=== PATIENT | female | born 1955 | race African-American/Black ===

== ENCOUNTER → 2023-08-01 11:51 | Outpatient (REF) | payer OTHER, SELFPAY | LOC: HWRAD 11:51 | PROVIDERS: ATTENDING PHYSICIAN Nurse Practitioner Adult Health | DX: Z78.0 Asymptomatic menopausal state (principal) | CPT/HCPCS: 77080 ==

== ENCOUNTER → 2024-01-16 12:12 | Outpatient (REF) | payer OTHER, SELFPAY | LOC: HWRAD 12:12 | PROVIDERS: ATTENDING PHYSICIAN Nurse Practitioner Adult Health | DX: M25.562 Pain in left knee (principal) | CPT/HCPCS: 73564 ==

== ENCOUNTER → 2024-01-19 06:15 | Day surgery (SDC) | payer OTHER, SELFPAY | LOC: GI 06:15 | PROVIDERS: ATTENDING PHYSICIAN Internal Medicine | DX: Z12.11 Encounter for screening for malignant neoplasm of colon (principal); D12.3 Benign neoplasm of transverse colon; K31.89 Other diseases of stomach and duodenum; R12 Heartburn | CPT/HCPCS: 45385; 43239; 88305; 88342 ==

== ENCOUNTER → 2024-04-15 13:49 | Outpatient (REF) | payer OTHER, SELFPAY | LOC: WDC 13:49 | PROVIDERS: ATTENDING PHYSICIAN Nurse Practitioner Adult Health | DX: Z12.31 Encounter for screening mammogram for malignant neoplasm of breast (principal) | CPT/HCPCS: 77063; 77067 ==

== ENCOUNTER 2024-05-25 10:38 | Emergency (ER) | payer OTHER, SELFPAY ==
[2024-05-25 11:13] VITALS: BP 170/71
[2024-05-25 11:51] LABS: % Basophils 0.3 % (0-2); % Eosinophils 1.8 % (0-6); % Immature Granulocytes 0.3 % (0-0.5); % Lymphocytes 31.9 % (20.5-51.1); % Monocytes 6.9 % (1.7-9.3); % Neutrophils 58.8 % (42.2-75.2); Absolute Eosinophils 0.1 10^3/uL (0-0.7); Absolute Lymphocytes 2.4 10^3/uL (1.2-3.4); Absolute Monocytes 0.5 10^3/uL (0.1-0.6); Absolute Neutrophils 4.5 10^3/uL (1.4-6.5); Hematocrit 35.9 % (37.0-47.0); Hemoglobin 11.4 g/dL (12.0-16.0); Mean Corp Hgb Conc. 31.8 g/dL (33.0-37.0); Mean Corpuscular Hgb 32.2 pg (27.0-31.0); Mean Corpuscular Volume 101.4 fL (81.0-99.0); Mean Platelet Volume 9.5 fL (7.4-10.4); Nucleated Red Blood Cells % 0 %; Platelet Count 186 10^3/uL (130-400); Red Blood Cell Count 3.54 10^6/uL (4.20-5.40); Red Cell Dist. Width 13.1 % (11.5-14.5); White Blood Cell Count 7.6 10^3/uL (4.8-10.8)
[2024-05-25 11:59] LABS: ALT (SGPT) 15 U/L (0-35); AST (SGOT) 22 U/L (14-36); Alkaline Phosphatase 69 U/L (38-126); Blood Urea Nitrogen 15 mg/dl (7-17); Calcium 9.3 mg/dl (8.4-10.2); Carbon Dioxide 24 mmol/L (22-30); Chloride 108 mmol/L (98-107); Glucose 99 mg/dl (70-99); Potassium 3.8 mmol/L (3.5-5.1); Sodium 141 mmol/L (135-145); Total Bilirubin 0.8 mg/dl (0.2-1.3); Total Protein 6.6 g/dl (6.3-8.2); eGFR > 60.00
[2024-05-25 12:08] LABS: NT-proBNP 138 pg/ml; Troponin I < 0.012 ng/ml
[2024-05-25 14:06] VITALS: BP 169/71
[2024-05-25 15:51] VITALS: BP 154/55
[2024-05-25 15:52] VITALS: BP 154/55
[2024-05-25 15:54] VITALS: BMI 41.3
[2024-05-25 16:00] VITALS: BP 153/65
--- NOTE | 2024-05-25 17:27 | ED.GENMED ---
History of Present Illness
<Ascencion Olivier MD - Last Filed: 05/25/24 17:31>
General
Chief Complaint: Breathing Problem
Source: patient
Exam Limitations: none
Time Seen by Provider: 05/25/24 15:04
History of Present Illness
History of Present Illness:
Patient presents with cough. Some yellow sputum. Trace of blood. Positive COVID about 3 weeks ago. Some mild ankle swelling bilaterally. Seen by the primary physician and was worried about pulmonary emboli/DVT and sent for further evaluation.
Past History
<Ascencion Olivier MD - Last Filed: 05/25/24 17:31>
Past History
ED Past Medical History: Asthma and Other
ED Past Surgical History: Gynecological
Social History
Tobacco: Non-smoker
Drug: None
Personal:
Living: with family
Employment: Employed
Review of Systems
<Ascencion Olivier MD - Last Filed: 05/25/24 17:31>
Review of Systems
All Other Systems: Not applicable
Constitutional: Denies fever
Respiratory: Reports cough
Cardiac: Denies palpitations or syncope
ABD/GI: Reports no symptoms
Phy Exam
<Ascencion Olivier MD - Last Filed: 05/25/24 17:31>
Physical Exam
Physical Exam:
GENERAL: Alert and oriented in no apparent distress
EYE: Orbits normal.
NECK: Supple
ENT: Speech normal. No drooling or stridor
CARDIAC: Regular rate and rhythm without any obvious murmurs.
LUNGS: Clear breath sounds,normal
ABDOMEN: Soft, without focal tenderness or distention
NEUROLOGICAL: Alert and oriented , grossly non-focal
SKIN: Warm and dry, no rash or lesion, no discoloration, skin intact.
MUSCULOSKELETAL: Very minimal bilateral lower extremity swelling more at the ankles
PSYCH: Normal and appropriate interaction.
Scores
<JAX Lopez - Last Filed: 05/26/24 04:18>
Heart Failure Risk
Heart Failure Risk Score: Not Applicable
Course
<Ascencion Olivier MD - Last Filed: 05/25/24 17:31>
Orders/Labs/Results
Orders:
Orders
05/25/24 11:18
ECG [Electrocardiogram (*1)] Urgent
Reason for Study: Shortness of Breath
EKG- Treatment ONCE
05/25/24 11:35
Complete Blood Count/With Diff Urgent
Comprehensive Metabolic Panel Urgent
NT-proBNP Urgent
Troponin I Urgent
05/25/24 15:19
CT Chest PE Study Urgent
Comment:
Reason For Exam: Hemoptysis/short of breath
US Periph Venous LOWER Ext Andrez Urgent
Comment:
Reason For Exam: Leg swelling/hemoptysis
05/25/24 17:30
Amoxicillin 875 mg/Clav 125 mg [Augmentin 875 mg/125 mg] 1 tablet PO NOW STA
Abnormal Lab Results
05/25/24
11:35
RBC 3.54 L 10^6/uL
(4.20-5.40)
Hgb 11.4 L g/dL
(12.0-16.0)
Hct 35.9 L %
(37.0-47.0)
MCV 101.4 H fL
(81.0-99.0)
MCH 32.2 H pg
(27.0-31.0)
MCHC 31.8 L g/dL
(33.0-37.0)
Chloride 108 H mmol/L
(98-107)
05/25/24 11:35
05/25/24 11:35
Vital Signs
Initial and Last Documented VS:
Initial Vital Signs
Temp Pulse Resp BP Pulse Ox
98.0 F 64 20 170/71 100
05/25/24 11:13 05/25/24 11:13 05/25/24 11:13 05/25/24 11:13 05/25/24 11:13
Last Documented Vital Signs
Temp Pulse Resp BP Pulse Ox
98.0 F 62 18 127/59 99
05/25/24 11:13 05/25/24 19:37 05/25/24 16:30 05/25/24 19:37 05/25/24 19:37
<JAX Lopez - Last Filed: 05/26/24 04:18>
Orders/Labs/Results
Orders:
Orders
05/25/24 11:18
ECG [Electrocardiogram (*1)] Urgent
Reason for Study: Shortness of Breath
EKG- Treatment ONCE
05/25/24 11:35
Complete Blood Count/With Diff Urgent
Comprehensive Metabolic Panel Urgent
NT-proBNP Urgent
Troponin I Urgent
05/25/24 15:19
CT Chest PE Study Urgent
Comment:
Reason For Exam: Hemoptysis/short of breath
US Periph Venous LOWER Ext Andrez Urgent
Comment:
Reason For Exam: Leg swelling/hemoptysis
05/25/24 17:30
Amoxicillin 875 mg/Clav 125 mg [Augmentin 875 mg/125 mg] 1 tablet PO NOW STA
Abnormal Lab Results
05/25/24
11:35
RBC 3.54 L 10^6/uL
(4.20-5.40)
Hgb 11.4 L g/dL
(12.0-16.0)
Hct 35.9 L %
(37.0-47.0)
MCV 101.4 H fL
(81.0-99.0)
MCH 32.2 H pg
(27.0-31.0)
MCHC 31.8 L g/dL
(33.0-37.0)
Chloride 108 H mmol/L
(98-107)
05/25/24 11:35
05/25/24 11:35
Vital Signs
Initial and Last Documented VS:
Initial Vital Signs
Temp Pulse Resp BP Pulse Ox
98.0 F 64 20 170/71 100
05/25/24 11:13 05/25/24 11:13 05/25/24 11:13 05/25/24 11:13 05/25/24 11:13
Last Documented Vital Signs
Temp Pulse Resp BP Pulse Ox
98.0 F 62 18 127/59 99
05/25/24 11:13 05/25/24 19:37 05/25/24 16:30 05/25/24 19:37 05/25/24 19:37
<Ascencion Olivier MD - Last Filed: 05/25/24 17:31>
MDM/Problems Addressed
Differential Diagnosis Includes:
Patient presents with mostly infectious-like symptoms. Was sent in to evaluate for PE/DVT. Clinically not in heart failure. proBNP normal. CT scan shows no heart failure. No pneumonia. Chest CT negative. Leg ultrasounds pending but likely
negative. With yellow sputum will cover with antibiotics to follow-up.
<Ascencion Olivier MD - Last Filed: 05/25/24 17:31>
*Radiology
Radiology exam reviewed: radiology read reviewed (No pulmonary emboli)
*Pulse Oximetry
Patient hypoxic: no
*EKG
Interpreted by ED Provider?: Yes
Interpretation: abnormal
Comparison EKG: no changes
Heart Rate: 63
Rate: normal
Rhythm: sinus
[place]: normal axis
Interval: normal interval
QRS Pattern: normal QRS
Ischemia: non-specific ST changes
<JAX Lopez - Last Filed: 05/26/24 04:18>
*Radiology
Radiology exam reviewed: radiology read reviewed (No pulmonary emboli US- negative for DVT bilateral legs)
*Critical Care Note
Total Time (30-74mins, 75-104mins- exclusive of procedures): Not Applicable
ED Attending Note
<Ascencion Olivier MD - Last Filed: 05/25/24 17:31>
-
Portions of this chart may have been created with voice recognition software.� Occasional wrong word or��sound alike� substitutions may have occurred due to the inherent limitations of voice recognition software.
Discharge Plan
Departure
Patient Disposition: Home (Routine Discharge)
Date of Disposition: 05/25/24
Time of Disposition: 19:27
Patient with high blood pressure during this ER visit?: Yes
Discharge Problem:
Bronchitis, Bilateral ankle swelling
Instructions: Shortness of Breath (Dyspnea) (DC), BLOOD PRESSURE
Prescriptions:
New
amoxicillin-pot clavulanate 875-125 mg tablet
1 tab PO BID Qty: 14 0RF
No Action
lactulose [Generlac] 10 gram/15 mL solution
20 g PO BID Qty: 237 0RF
Referrals:
Luna Boudreaux CRNP [Family Provider] - Follow up in 2-3 days
Activity Restrictions/Additional Instructions:
Elevate and rest your legs
Follow-up closely with your primary physician
Return sooner with worsening hemoptysis, chest pain, fever, shortness of breath, increased leg swelling or any other concerning symptoms
Interventions
Interventions:
*Risk Screen - Suicide Last Done: 05/25/24 19:30
*General Assessment Last Done: 05/25/24 15:52
*Neglect/Abuse Screening Last Done: 05/25/24 19:30
ED- Fall Risk Assessment Last Done: 05/25/24 19:30
*ED COVID-19 Vaccine History Last Done: 05/25/24 15:52
*Nursing Disposition Last Done: 05/25/24 19:30
ED- Cardiac Assessment Last Done: 05/25/24 15:55
ED- Pulmonary Assessment Last Done: 05/25/24 15:55
Discharge Date and Time
Discharge Date/Time: 05/25/24 19:35
Print Language: FAROESE
[2024-05-25 19:37] VITALS: BP 127/59
[2024-05-25] MEDS: AUGMENTIN 875 MG/125 MG 1 TABLET PO (19:39)
== END 2024-05-25 19:35 | disposition home or self-care (01) ==
LOC: EMR 10:38
PROVIDERS: Emergency Medicine; EMERGENCY PHYSICIAN Emergency Medicine; FAMILY PHYSICIAN Nurse Practitioner Adult Health
DX: J20.9 Acute bronchitis, unspecified (principal); M25.471 Effusion, right ankle; M25.472 Effusion, left ankle; R06.02 Shortness of breath; R04.2 Hemoptysis; R03.0 Elevated blood-pressure reading, without diagnosis of hypertension; J45.909 Unspecified asthma, uncomplicated; Z86.16 Personal history of COVID-19; Z88.1 Allergy status to other antibiotic agents
CPT/HCPCS: 99285; 71275; 80053; 83880; 84484; 85025; 93005; 93970; Q9967

== ENCOUNTER 2024-11-15 09:40 | Emergency (ER) | payer OTHER, SELFPAY ==
[2024-11-15 09:41] VITALS: BP 105/82
--- NOTE | 2024-11-15 11:21 | ED.GENMED ---
History of Present Illness
General
Chief Complaint: Dental Problem
Time Seen by Provider: 11/15/24 11:07
History of Present Illness
History of Present Illness:
69-year-old female presents to the emergency department for evaluation of right sided dental pain. She underwent a procedure 2 days ago at [facility] for a cavity excision and drilling of the nerve root, she was reportedly supposed to be
started on antibiotics however the wrong prescription was sent in for her and thus she has not had any antibiotics at this time. She reports severe pain this morning. No fevers or chills
Past History
Past History
ED Past Medical History: Asthma and Other
ED Past Surgical History: Gynecological
Social History
Tobacco: Non-smoker
Drug: None
Personal:
Living: with family
Employment: Employed
Review of Systems
Review of Systems
Allergies reviewed?: Yes
All Other Systems: ROS reviewed and negative except as documented in HPI and ROS
Phy Exam
Physical Exam
Physical Exam:
GEN: Well appearing, NAD, WDWN
HEENT: Oral mucosa moist, no scleral icterus. No gingival erythema or swelling, no trismus, oropharynx clear, no cervical adenopathy bilaterally
Cardiac: Regular rate
Lung: No respiratory distress, no tachypnea
MSK: No gross deformity or injuries
Skin: Good color, no pallor or jaundice, no rashes
Neuro: AO x3, moves all extremities freely
Psych: Calm, cooperative
Course
Orders/Labs/Results
Orders:
Orders
11/15/24 11:19
Ibuprofen [Motrin] 600 mg PO NOW STA
Oxycodone/Acetaminophen [Percocet 5/325] 1 tablet PO NOW STA
Vital Signs
Initial and Last Documented VS:
Initial Vital Signs
Temp Pulse Resp BP Pulse Ox
98.3 F 60 18 105/82 99
11/15/24 09:41 11/15/24 09:41 11/15/24 09:41 11/15/24 09:41 11/15/24 09:41
Last Documented Vital Signs
Temp Pulse Resp BP Pulse Ox
98.3 F 55 16 156/66 100
11/15/24 09:41 11/15/24 11:30 11/15/24 11:30 11/15/24 11:30 11/15/24 11:30
MDM/Problems Addressed
MDM/Problems Addressed:
Clinically patient appears well and there are no local signs of infection seen on exam, will start the patient on Augmentin, was reportedly supposed to be started on azithromycin however has documented allergy to erythromycin thus will avoid
macrolides. She reports that she had been on amoxicillin for 2 weeks prior to the procedure thus we will use Augmentin. Will also prescribe pain medication
*Pulse Oximetry
SaO2: 99
Oxygen Mode of Delivery: Room air
Patient hypoxic: no (100% room air)
*Critical Care Note
Total Time (30-74mins, 75-104mins- exclusive of procedures): Not Applicable
ED Attending Note
-
Portions of this chart may have been created with voice recognition software.� Occasional wrong word or��sound alike� substitutions may have occurred due to the inherent limitations of voice recognition software.
Discharge Plan
Departure
Patient Disposition: Home (Routine Discharge)
Date of Disposition: 11/15/24
Time of Disposition: 11:23
Patient with high blood pressure during this ER visit?: No
Discharge Problem:
Pain, dental
Instructions: Dental Pain (DC)
Prescriptions:
New
oxycodone-acetaminophen [Percocet] 5-325 mg tablet
1 tab PO Q6HPRN PRN (Reason: pain) Qty: 8 0RF
amoxicillin-pot clavulanate 875-125 mg tablet
1 tab PO BID Qty: 14 0RF
No Action
lactulose [Generlac] 10 gram/15 mL solution
20 g PO BID Qty: 237 0RF
amoxicillin-pot clavulanate 875-125 mg tablet
1 tab PO BID Qty: 14 0RF
Referrals:
Luna Boudreaux CRNP [Family Provider, General]
Interventions
Interventions:
*Risk Screen - Suicide Last Done: 11/15/24 09:41
*General Assessment Last Done: 11/15/24 11:30
*Neglect/Abuse Screening Last Done: 11/15/24 09:41
*ED- Fall Risk Assessment Last Done: 11/15/24 11:30
*ED COVID-19 Vaccine History Last Done: 11/15/24 11:30
*Nursing Disposition Last Done: 11/15/24 11:40
Discharge Date and Time
Discharge Date/Time: 11/15/24 11:40
Print Language: YORUBA
[2024-11-15 11:29] VITALS: BMI 37.1
[2024-11-15 11:30] VITALS: BP 156/66
[2024-11-15] MEDS: MOTRIN 600 MG PO (11:35)
[2024-11-15] MEDS: PERCOCET 5/325 1 TABLET PO (11:35)
== END 2024-11-15 11:40 | disposition home or self-care (01) ==
LOC: EMR 09:40
PROVIDERS: EMERGENCY PHYSICIAN Emergency Medicine; FAMILY PHYSICIAN Nurse Practitioner Adult Health
DX: K08.89 Other specified disorders of teeth and supporting structures (principal); J45.909 Unspecified asthma, uncomplicated
CPT/HCPCS: 99282

== ENCOUNTER → 2025-04-16 13:02 | Outpatient (REF) | payer OTHER, SELFPAY | LOC: HWWDC 13:02 | PROVIDERS: ATTENDING PHYSICIAN Obstetrics & Gynecology Gynecology; FAMILY PHYSICIAN Nurse Practitioner Adult Health | DX: Z12.31 Encounter for screening mammogram for malignant neoplasm of breast (principal) | CPT/HCPCS: 77063; 77067 ==